=== PATIENT | female | born 1975 | race Caucasian/White ===

== ENCOUNTER → 2016-06-25 | Outpatient (CLI) | payer OTHER | LOC: FIMAGING 09:01 | DX: Z12.31 Encounter for screening mammogram for malignant neoplasm of breast (principal); Z80.3 Family history of malignant neoplasm of breast | CPT/HCPCS: G0202 ==

== ENCOUNTER 2017-09-15 18:45 | Emergency (ER) | payer OTHER ==
[2017-09-15] MEDS ORDERED: NS 1,000 ML IV ONE ×2 (19:11)
[2017-09-15] MEDS ORDERED: ACETAMINOPHEN 500 MG TAB PO ONE (19:14)
--- NOTE | 2017-09-15 19:17 | EDPHY ---
H & P Stated Complaint: stiff neck, fever, rash Time Seen by Provider: 09/15/17 19:14 HPI/ROS: HPI: This is a 42-year-old female who presents with Chief Complaint: Stiff neck, fever Location: Bilateral posterior neck Quality: Stiffness Duration: 3 days Signs and Symptoms: + fever, no nausea, no vomiting, no diarrhea, no urinary symptoms, no chest pain, + shortness of breath, no wheezing, no cough, no sore throat, + neck stiffness, no joint pain, no swollen glands, no ear pain, no rash Timing: Worsening Severity: Moderate Context: Patient reports that she was in [place], [place] for 3-4 days stay in the cabin that had mycin and she saw feces. She reports that approximately 24-48 hour she started to experience bilateral posterior neck stiffness that worsened with movement. She reports that she has no upper respiratory symptoms including no cough, sore throat. She was seen by her primary care provider this morning and given diclofenac and Flexeril with [id number] relief of her neck pain and with mild improvement of range of motion. She does complain that she feels like her range of motion has decreased over the last several days of her neck. She reports that this evening she spiked a fever of 102 F orally. She does complain of a dull generalized headache but it feels different than when she gets migraine headaches. She also complains of fatigue and reports that she has delayed response answering questions. She denies any photophobia, vomiting, focal weakness, seizures. Currently on her menses. Patient is concerned that she feels short of breath and that she may have pneumonia. She is also concerned about contacting the Hantavirus. She reports that there were mice in her cabin and she did see feces in the bedroom drawers. Patient also complains of bilateral rash on the back of both of her arms that has been there for several days. Nonsmoker and does not take control pills or hormone therapy. Patient does have a history asthma but denies any respiratory distress or wheezing. She does have a Proair inhaler at home. Modifying Factors: Diclofenac and Flexeril Comment: ROS: see HPI Constitutional: + fever, no chills, no weight loss Eyes: No blurred vision Respiratory: + shortness of breath, no cough Cardiovascular: No chest pain, no palpitations Gastrointestinal: No nausea, no vomiting, no diarrhea, no hematemesis, no blood in stool Genitourinary: No dysuria, no blood in urine Extremities: No myalgias, no edema Neurologic: No weakness, no numbness Skin: No rashes, no petechiae Hematologic: No bruising, no bleeding MEDICAL/SURGICAL/SOCIAL HISTORY: Medical history: HTN, migraines, asthma, chronic back pain, abdominal adhesion surgery, L ankle fx Surgical history: Denies Social history: . Family history noncontributory. CONSTITUTIONAL: Ill appearing middle-aged white female, at bedside, awake and alert, no obvious distress HEENT: Atraumatic and normocephalic, PERRL, EOMI. Nares patent; no rhinorrhea; no nasal mucosal edema. Tympanic membranes clear. Oropharynx clear, no exudate and moist pink mucosa. Airway patent. No lymphadenopathy. NECK: supple, no midline tenderness, mildly decreased flexion, extension, and bilateral lateral flexion, + nuchal rigidity. No meningismus. Cardiovascular: Normal S1/S2, regular rate, regular rhythm, without murmur rub or gallop. PULMONARY/CHEST: Symmetrical and nontender. Clear to auscultation bilaterally. Good air movement. No accessory muscle usage. ABDOMEN: Soft, nondistended, nontender, no rebound, no guarding, no peritoneal signs, no masses or organomegaly. No CVAT. EXTREMITIES: 2/2 pulses, strength 5/5, no deformities, no clubbing, no cyanosis or edema. No calf tenderness. NEUROLOGICAL: no focal neuro deficits. GCS 15. SKIN: Warm and dry, mild erythema noted to the back of both arms with some scaling-blanches with palpation. No vesicles. No petechiae. Good capillary refill. Source: Patient Exam Limitations: No limitations - Personal History LMP (Females 10-55): Now Current Tetanus/Diphtheria Vaccine: Unsure Current Tetanus Diphtheria and Acellular Pertussis (TDAP): Unsure Tetanus Vaccine Date: 03/19 - Medical/Surgical History Hx Asthma: Yes Hx Chronic Respiratory Disease: No Hx Diabetes: No Hx Cardiac Disease: No Hx Renal Disease: No Hx Cirrhosis: No Hx Alcoholism: No Hx HIV/AIDS: No Hx Splenectomy or Spleen Trauma: No Other PMH: HTN, migraines, asthma, chronic back pain, abdominal adhesion surgery , L ankle fx - Social History Smoking Status: Never smoked Constitutional: Initial Vital Signs Temperature (C) 38.6 C H 09/15/17 18:52 Heart Rate 100 09/15/17 18:52 Respiratory Rate 16 09/15/17 18:52 Blood Pressure 174/103 H 09/15/17 18:52 O2 Sat (%) 94 09/15/17 18:52 O2 Delivery Mode Room Air Allergies/Adverse Reactions: Sulfa (Sulfonamide Antibiotics) Allergy (Mild, Verified 09/01/10 01:19) Itching terbinafine [From Lamisil] Allergy (Verified 09/15/17 18:50) Home Medications: Medication Instructions Recorded Albuterol 09/15/17 Diclofenac 0.1% 09/15/17 FLUoxetine 09/15/17 Flexeril 10 MG (*) 09/15/17 HCTZ (*) 09/15/17 Lisinopril 09/15/17 Proair Hfa 09/15/17 Sumatriptan 09/15/17 Medical Decision Making - Diagnostics Imaging Results: Imaging Impressions Chest X-Ray 09/15/17 19:20 Impression: No acute abnormality. ED Course/Re-evaluation: Respiratory pathogen panel, IV fluids, labs including lactic acid and blood cultures, chest x-ray, lumbar puncture ordered O2 sat show tachycardia, fever and O2 sats of 94% Meets SIRS criteria; 2 L normal saline ordered 1999: Labs review show WBC of 9.8 with left shift, lactic acid is 1.4, CRP is 63.7, ESR 16 Discussed concern for meningitis with patient as she does have obvious risk factors and correlating physical exam. She is now denying any headache. Patient has refused the lumbar puncture by Dr. Thompson. Patient is requesting for specific Hantavirus testing. IgG and IgM Hantavirus ordered. Chest x-ray my read and with attending shows no opacity, no effusion, no pneumothorax, no widened mediastinum. Patient will be treated for a viral syndrome. She was given explicit instructions if there is any worsening of her symptoms she is to return to the emergency room immediately. I did consider pulmonary embolism but heart rate improved with IV fluids and O2 sats remained 96% on room air and improved with deep breathing. Lung sounds are clear. No signs of asthma exacerbation. Vital signs improved at discharge. This patient was seen under the supervision of my secondary supervising physician. I evaluated care for this patient independently. Discussed this patient with Dr. Thompson who did see the patient. Differential Diagnosis: Differential diagnosis includes but is not limited to migraine headache, meningitis, encephalitis, upper respiratory infection, viral syndrome, temporal arteritis, dehydration. - Data Points Laboratory Results: Laboratory Results 09/15/17 19:25 09/15/17 19:25 09/15/17 09/15/17 09/15/17 19:25 19:25 19:25 WBC RBC Hgb Hct MCV MCH MCHC RDW Plt Count MPV Neut % (Auto) Lymph % (Auto) [place] % (Auto) Eos % (Auto) Baso % (Auto) Nucleat RBC Rel Count Absolute Neuts (auto) Absolute Lymphs (auto) Absolute Monos (auto) Absolute Eos (auto) Absolute Basos (auto) Absolute Nucleated RBC Immature Gran % Immature Gran # ESR VBG Lactic Acid 1.4 mmol/L mmol/L (0.7-2.1) Sodium 134 mEq/L L mEq/L (135-145) Potassium 4.1 mEq/L mEq/L (3.3-5.0) Chloride 98 mEq/L mEq/L (97-110) Carbon Dioxide 25 mEq/l mEq/l (22-31) Anion Gap 11 mEq/L mEq/L (8-16) BUN 10 mg/dL mg/dL (7-23) Creatinine 0.9 mg/dL mg/dL (0.6-1.0) Estimated GFR > 60 Glucose 116 mg/dL H mg/dL (70-100) Calcium 8.8 mg/dL mg/dL (8.5-10.4) Total Bilirubin 1.3 mg/dL mg/dL (0.1-1.4) Conjugated Bilirubin 0.3 mg/dL mg/dL (0.0-0.5) Unconjugated Bilirubin 1.0 mg/dL mg/dL (0.0-1.1) AST 31 IU/L IU/L (14-46) ALT 47 IU/L IU/L (9-52) Alkaline Phosphatase 68 IU/L IU/L (38-126) C-Reactive Protein 63.7 mg/L H mg/L (<10.0) Total Protein 7.3 g/dL g/dL (6.3-8.2) Albumin 4.0 g/dL g/dL (3.5-5.0) Hantavirus IgG Ab Pending Hantavirus IgM Ab Pending 09/15/17 19:25 WBC 9.81 10^3/uL H 10^3/uL (3.80-9.50) RBC 5.09 10^6/uL 10^6/uL (4.18-5.33) Hgb 15.6 g/dL g/dL (12.6-16.3) Hct 45.6 % % (38.0-47.0) MCV 89.6 fL fL (81.5-99.8) MCH 30.6 pg pg (27.9-34.1) MCHC 34.2 g/dL g/dL (32.4-36.7) RDW 13.5 % % (11.5-15.2) Plt Count 190 10^3/uL 10^3/uL (150-400) MPV 9.8 fL fL (8.7-11.7) Neut % (Auto) 81.9 % H % (39.3-74.2) Lymph % (Auto) 10.1 % L % (15.0-45.0) [place] % (Auto) 3.6 % L % (4.5-13.0) Eos % (Auto) 4.0 % % (0.6-7.6) Baso % (Auto) 0.2 % L % (0.3-1.7) Nucleat RBC Rel Count 0.0 % % (0.0-0.2) Absolute Neuts (auto) 8.04 10^3/uL H 10^3/uL (1.70-6.50) Absolute Lymphs (auto) 0.99 10^3/uL L 10^3/uL (1.00-3.00) Absolute Monos (auto) 0.35 10^3/uL 10^3/uL (0.30-0.80) Absolute Eos (auto) 0.39 10^3/uL 10^3/uL (0.03-0.40) Absolute Basos (auto) 0.02 10^3/uL 10^3/uL (0.02-0.10) Absolute Nucleated RBC 0.00 10^3/uL 10^3/uL (0-0.01) Immature Gran % 0.2 % % (0.0-1.1) Immature Gran # 0.02 10^3/uL 10^3/uL (0.00-0.10) ESR 16 MM/HR MM/HR (0-20) VBG Lactic Acid Sodium Potassium Chloride Carbon Dioxide Anion Gap BUN Creatinine Estimated GFR Glucose Calcium Total Bilirubin Conjugated Bilirubin Unconjugated Bilirubin AST ALT Alkaline Phosphatase C-Reactive Protein Total Protein Albumin Hantavirus IgG Ab Hantavirus IgM Ab Medications Given: Discontinued Medications Acetaminophen (Tylenol) 1,000 mg PO EDNOW ONE Stop: 09/15/17 19:15 Last Admin: 09/15/17 19:33 Dose: 1,000 mg Sodium Chloride (Ns) 1,000 mls @ 0 mls/hr IV ONCE ONE; Wide Open PRN Reason: Protocol Stop: 09/15/17 19:12 Last Admin: 09/15/17 19:33 Dose: 1,000 mls Departure - Departure Disposition: Home, Routine, Self-Care Clinical Impression: Viral syndrome Condition: Good Instructions: Viral Meningitis (ED), Viral Syndrome (ED) Additional Instructions: It takes approximately 24-48 hours to obtain the results from the respiratory pathogen panel and up to 2-3 days to obtain the results from Hantavirus test. Please call on Tuesday or Tuesday to obtain these results. Consume a minimum of 8-10 glasses of water or electrolyte fluid replacement drinks that include Gatorade, Powerade, Pedialyte. Eat a bland diet for the next 48 hours and then slowly advance as tolerated. Rest as much as possible until you are feeling better. Take Tylenol and/or ibuprofen as needed for pain, fever, headache. Follow-up with your primary care provider in the next 3-4 days for close monitoring. Return to the Emergency Room immediately if symptoms worsen. Follow-Up: Please follow-up as noted above. Follow-up sooner if your condition worsens or if you develop any new problems. Call as soon as possible for an appointment. Be clear when you call for an appointment that this is an Emergency Department follow-up. Contact the Emergency Department if you have trouble arranging follow-up care. Our referrals are not based on your insurance network. When time allows, contact your insurance carrier to verify the referral physician is in your plan. If not, get a referral for an in-computer network support specialist. Referrals: Stacia Adkins MD [Primary Care Provider] - 3-4 days, if not improved
[2017-09-15 19:46] LABS: PLATELET COUNT 190 10^3/uL (150-400)
[2017-09-15] MEDS ORDERED: fentaNYL 100 MCG/2 ML INJ ONE ×2 (20:08)
[2017-09-15 20:56] VITALS: BP 139/76
== END 2017-09-15 20:56 | disposition home or self-care (01) ==
DX: B34.9 Viral infection, unspecified (principal); E86.9 Volume depletion, unspecified; I10 Essential (primary) hypertension; J45.909 Unspecified asthma, uncomplicated
CPT/HCPCS: 86790-90; J3010

== ENCOUNTER → 2017-12-22 | Outpatient (CLI) | payer OTHER | LOC: FIMAGING 09:30 | PROVIDERS: ATTEND Family Medicine | DX: Z12.31 Encounter for screening mammogram for malignant neoplasm of breast (principal); Z80.3 Family history of malignant neoplasm of breast ==